=== PATIENT | female | born 2000 | race Caucasian/White ===

== ENCOUNTER 2021-04-06 11:54 | Emergency (ER) | payer OTHER | END 2021-04-06 15:44 | disposition short-term general hospital (02) | LOC: ED 11:54 | DX: S61.412A Laceration without foreign body of left hand, initial encounter (principal); S40.811A Abrasion of right upper arm, initial encounter; S80.211A Abrasion, right knee, initial encounter; S30.811A Abrasion of abdominal wall, initial encounter; X58.XXXA Exposure to other specified factors, initial encounter; Y93.89 Activity, other specified; Y92.89 Other specified places as the place of occurrence of the external cause; Y99.8 Other external cause status ==